=== PATIENT | female | born 1965 | race Caucasian/White ===

== ENCOUNTER → 2021-11-29 10:50 | Outpatient (BNVA) | payer OTHER, SELFPAY | PROVIDERS: Visit Provider Obstetrics & Gynecology | DX: R87.610 Atypical squamous cells of undetermined significance on cytologic smear of cervix (ASC-US) (principal); R87.810 Cervical high risk human papillomavirus (HPV) DNA test positive | CPT/HCPCS: 88305 ==

== ENCOUNTER 2022-02-04 10:24 | Observation (INO) | payer OTHER, SELFPAY ==
[2022-01-31 13:15] VITALS: BMI 25.4
--- NOTE | 2022-01-31 13:32 | ANES.PREANE2 ---
Pre-Anesthetic Assessment Height/Weight: Height 1.63 m Weight 67.132 kg Operation Date: 02/04/22 08:30 Proposed Procedures p Laparoscopic assisted vaginal hysterectomy, bilateral salpingectomy 56788, anterior and posterior repair 59337,N81.4(Not Applicable) - Cynthia Quinn MD s Laparoscopic Salpingectomy(Bilateral) - Cynthia Quinn MD s Anterior Repair(Not Applicable) - Cynthia Quinn MD s Posterior Repair(Not Applicable) - Cynthia Quinn MD Familial anesthetic complications: None Social Tobacco and No alcohol Exam alert, oriented x 3, clear to auscultation bilaterally and regular rate & rhythm Airway Mallampati: Class II Dentition: false Pulmonary None reported CV/HEM None reported None reported Hepatic None reported GI None reported Metabolic None reported Musc/skel None reported Neuropsych None reported Anesthetic Plan ASA status: 1 Anesthesia: General Risk of > 500 ml blood loss (7ml/kg in children): No Medications/Allergies Home Medications Medication Instructions Recorded Confirmed Last Taken Type No Known Home Medications 10/23/21 01/31/22 Unknown History Allergies Allergy/AdvReac Type Severity Reaction Status Date / Time No Known Allergies Allergy Verified 11/29/21 10:14 [facility] Anesthesia Medical History Abnormal Pap smear of cervix Hyperlipemia Family History Mother Diabetes Heart disease Hypertension Father Hypercholesteremia Stroke Other Thyroid disease Denies family history of Colon cancer Ovarian cancer Breast cancer Uterine cancer Social History Smoking and tobacco status: current every day smoker (1ppd) Data Anesthesia Cardiac Studies: No Data to Display
[2022-01-31 16:31] LABS: Basophils % 0.5 %; Eosinophils # 0.1 10^3/uL (0.0-0.8); Eosinophils % 1.1 %; Hematocrit 43.3 % (37.0-47.0); Hemoglobin 14.3 g/dL (11.5-15.3); Lymphocytes # 2.3 10^3/uL (0.8-4.8); Lymphocytes % 29.2 %; Mean Corpuscular Hemoglobin 31.4 pg (28.0-34.0); Mean Platelet Volume 9.3 fL (7.4-10.4); Monocytes # 0.6 10^3/uL (0.2-0.9); Monocytes % 7.5 %; Neutrophils # 4.82 10^3/uL (1.8-7.7); Neutrophils % 61.4 %; Nucleated Red Blood Cells % 0 %; Platelet Count 343 10^3/cmm (130-400); Red Blood Count 4.56 10^6/uL (4.1-5.3); Red Cell Distribution Width 12.3 % (12.1-15.1); White Blood Count 7.9 10^3/uL (4.0-10.0)
[2022-01-31 16:46] LABS: Blood Urea Nitrogen 19 mg/dL (6-20); Calcium 9.6 mg/dL (8.5-10.5); Carbon Dioxide 27 mmol/L (22-29); Chloride 105 mmol/L (98-107); Glomerular Filtration Rate 74.2 mL/min (90-130); Glucose 104 mg/dL (65-115); Osmolality Calculated 295 mOsm/kg (285-295); Sodium 141 mmol/L (136-145)
[2022-02-04] VITALS (16 sets, daily range): BP systolic 111–159; BP diastolic 59–94; PULSE 65–83; RESP 10–18; TEMP 36.1–36.8; O2SAT 95–100
[2022-02-04] MEDS: acetaminophen 1,000 MG/100 ML PIGGYBACK 400 MG IV (07:20)
[2022-02-04] MEDS: gabapentin 300 mg Capsule PO (07:38)
[2022-02-04] MEDS: CELEcoxib 200 mg Capsule 400 MG PO (07:38)
[2022-02-04] MEDS: phenazopyridine 100 mg Tablet 200 MG PO ×2 (07:38→15:14)
[2022-02-04] MEDS: scopolamine 1.5 Patch 1 PATCH TRANSDERMA (07:38)
--- NOTE | 2022-02-04 07:44 | W.PM.OPSUD ---
Surgery/Procedure H&P Update DATE OF PROCEDURE: February 04, 2022 DATE H&P PERFORMED: 01/31/22 H&P UPDATE INFORMATION: I have reviewed H&P completed within last 30 days, I have examined patient prior to procedure and Changes to prior documentation as noted here CHANGES TO PREVIOUS DOCUMENTATION: I have changed the consent to read bilateral salpingoophorectomy instead of bilateral salpingectomy. The patient agrees with plan. PREOP DIAGNOSIS: DARIUSZ 3, uterine prolapse PLANNED PROCEDURE: Operation Date: 02/04/22 08:30 Proposed Procedures p Laparoscopic assisted vaginal hysterectomy, bilateral salpingectomy 14021, anterior and posterior repair 58647,N81.4(Not Applicable) - Cynthia Quinn MD s Laparoscopic Salpingectomy(Bilateral) - Cynthia Quinn MD s Anterior Repair(Not Applicable) - Cynthia Quinn MD s Posterior Repair(Not Applicable) - Cynthia Quinn MD
[2022-02-04] MEDS: ceFAZolin 2,000 MG in sodium chloride 0.9% (plus) 50 ML 100 MG IV ×3 (07:45→23:59)
--- NOTE | 2022-02-04 09:52 | PM.OP ---
Operative Report Date of procedure: February 04, 2022 Pre-op diagnosis: Preop Diagnosis DARIUSZ 3, uterine prolapse Post-op diagnosis: same Post-op findings: 6 week sized uterus, normal appearing tubes and ovaries Procedure done: LAVH, BSO, cystoscopy Specimens removed/disposition: uterus, tubes, ovaries to pathology Surgeon: Cynthia Quinn Anesthesia: General Estimated blood loss (mL): 25 IV fluids (mL): 1,000 Urine output (mL): 50 Complications: none Condition: stable Disposition: PACU Procedure: The patient was taken to the operating room where general anesthesia was administered and found to be adequate. She was prepped and draped in the normal sterile fashion in the dorsal lithotomy position in [facility]. A Iglesias catheter was placed. A weighted speculum was placed into the vagina and the anterior lip of the cervix was grasped with a single tooth tenaculum. The Zumi uterine manipulator was placed. The weighted speculum was removed. The gloves were changed and attention was turned to the abdomen. A 5 mm supraumbilical incision was made. Using a 5 mm port with the camera, the port was placed into the abdomen. The abdomen was insufflated. Two low, lateral 5 mm ports were placed on the left and right under direct visualization from the camera. The right tube was grasped and elevated. Using the laparoscopic cautery, the infundibulopelvic ligament was ligated, then cautery was used inferior to the fallopian tube. This was performed the same way on the left. The uteroovarian ligaments as well as the round ligaments were ligated. The tubes and ovaries were left attached. Attention was then turned to the vaginal portion of the procedure. The weighted speculum was placed into the vagina. The zumi manipulator was removed. The single tooth tenaculum was removed and replaced with the camacho's tenaculum. 10 mL of dilute Pitressin was injected at the vesicovaginal junction. A circumferential incision was made at the vesicovaginal junction and the vaginal mucosa reflected cephalad. The posterior peritoneum was entered sharply with the Metzenbaum scissors and the long weighted speculum replaced. Using the Luz clamps the uterosacral ligaments were clamped cut and suture-ligated. The anterior peritoneum was entered sharply with the metzenbaum scissors. Then sequentially the uterine arteries and cardinal ligaments were clamped cut and suture-ligated. A single-tooth tenaculum was used to deliver the uterus. The remaining segement of the utero-ovarian ligaments were clamped cut and suture-ligated bilaterally and the specimen was removed. There was good hemostasis with only mild bleeding from the cuff. The peritoneum was closed with a pursestring using 2-0 Vicryl. The vaginal cuff was closed with 0 Vicryl in a running locked pattern incorporating the uterosacral ligaments into the lateral aspects of the vaginal cuff. The Iglesias catheter was removed and the cystoscope advanced into the bladder. The patient was given pyridium and bilateral spill was noted. There were no injuries or deficits noted in the bladder. The cystoscope was removed and the Iglesias was replaced. Vaginal packing was placed for good hemostasis. The gloves and gowns were changed and attention was turned to the abdomen. The ports were closed with 2-0 monocryl with skin glue. The patient tolerated the procedure well. Sponge lap and needle counts were correct x3. She was taken to the recovery room in stable condition.
[2022-02-04] MEDS: fentaNYL 50 mcg/mL INJ 2mL IVP (10:26)
[2022-02-04] MEDS: dextrose 5%-lactated ringers 1,000 ML 125 ML IV ×2 (11:11→19:19)
[2022-02-04] MEDS: ketorolac 30 mg/mL INJ IVP ×3 (11:11→22:21)
[2022-02-04] MEDS: HYDROcodone-acetaminophen 5-325 mg Tablet PO (11:49)
--- NOTE | 2022-02-04 13:49 | P.ANESUD_ITS ---
Pre-Anesthetic Update Pre-Anesthetic Assessment: Date of Surgery/Procedure: 02/04/22 Preop Mihaela gnosis: DARIUSZ 3, uterine prolapse Proposed Procedure: Operation Date: 02/04/22 08:30 Proposed Procedures p Laparoscopic assisted vaginal hysterectomy, bilateral salpingectomy 55458, anterior and posterior repair 75281,N81.4(Not Applicable) - Cynthia Quinn MD s Laparoscopic Salpingectomy(Bilateral) - Cynthia Quinn MD s Anterior Repair(Not Applicable) - Cynthia Quinn MD s Posterior Repair(Not Applicable) - Cynthia Quinn MD Any changes to Pre-Anesthetic Assessment?: No Last Intake: Intake Last Liquid Date 02/03/22 Last Liquid Time 17:30 Last Solid Date 02/03/22 Last Solid Time 17:30 Labs Last 48hrs: Blood Bank 02/04/22 07:27 Blood Type O Negative Rho(D) Type Negative Antibody Screen Negative Vitals: Temperature 97.0 F L 02/04/22 09:55 Temperature Source Temporal Artery S can 02/04/22 09:55 Pulse Rate 71 02/04/22 12:46 Respiratory Rate 15 02/04/22 12:46 Respiratory Effort 02/04/22 10:26 Respiratory Depth Normal 02/04/22 10:26 Blood Pressure 155/89 02/04/22 12:46 Blood Pressure Zoe n 111 02/04/22 12:46 Blood Pressure Pos ition Semi Fowlers 02/04/22 12:46 Pulse Oximetry 98 02/04/22 12:46 Oxygen Delivery Me thod 02/04/22 12:46 Oxygen Flow Rate 1 02/04/22 12:46 Exam: Pre-Anes Outpt Exam: alert, oriented x 3, clear to auscultation bilaterally and regular rate & rhythm Cardiac Studies: No Data to Display
--- NOTE | 2022-02-04 16:37 | ANE.PACU2 ---
Inpatient post-anesthesia follow up: Airway intact: Yes Vital signs: Temperature 97.0 F Pulse Rate 71 Respiratory Rate 15 Blood Pressure 155/89 Pulse Oximetry 98 Oxygen Delivery Me thod Nasal Cannula Oxygen Flow Rate 1 Fraction of Inspir ed Oxygen Hydration adequate: Yes Nausea and vomiting: No Pain level: 3 Mental status: Baseline
[2022-02-05] MEDS: ondansetron 2 mg/ML SDV 2 mL 4 MG IVP (00:10)
[2022-02-05] MEDS: HYDROcodone-acetaminophen 5-325 mg Tablet PO (00:45)
[2022-02-05] MEDS: phenazopyridine 100 mg Tablet 200 MG PO ×2 (02:22→09:42)
[2022-02-05] MEDS: ketorolac 30 mg/mL INJ IVP (04:53)
[2022-02-05 06:10] LABS: Hematocrit 35.2 % (37.0-47.0); Hemoglobin 11.2 g/dL (11.5-15.3); Mean Corpuscular HGB Conc 31.8 g/dL (30.0-36.0); Mean Corpuscular Hemoglobin 31.5 pg (28.0-34.0); Mean Corpuscular Volume 98.9 fl (81-99); Mean Platelet Volume 9.8 fL (7.4-10.4); Platelet Count 261 10^3/cmm (130-400); Red Blood Count 3.56 10^6/uL (4.1-5.3); Red Cell Distribution Width 12.6 % (12.1-15.1); White Blood Count 9.4 10^3/uL (4.0-10.0)
--- NOTE | 2022-02-05 07:55 | PC.NURSE ---
This nurse pulled coombs and packing @0500
[2022-02-05] MEDS: docusate sodium 100 mg Capsule PO (09:42)
[2022-02-05] MEDS: ibuprofen 800 mg tablet PO (09:42)
[2022-02-05 10:25] VITALS: BP 130/67; PULSE 55; RESP 17; TEMP 36.6; O2SAT 97
--- NOTE | 2022-02-05 14:33 | P.DS_ITS ---
Discharge Providers Date of Admission: 02/04/22 10:24 Date of Discharge: February 05, 2022 Attending Provider at Admission: Cynthia Quinn MD Attending Provider at Discharge: Cynthia Quinn MD Primary Care Provider: Loretta Parekh Reason for Visit Reason for Visit: Uterovaginal prolapse, unspecified Hospital Course Hospital Course The patient was admitted for surgery. She did well postoperatively and was ready for discharge on day #1 Physical Exam Narrative: On post op day #1, she is doing well. No concerns or complaints.ambulating without difficulty. Tolerating a regular diet. pain is well controlled Const: COMMON NORMALS: no acute distress, average body habitus, patient oriented x3, no limitations, healthy appearing, alert and well nourished GENERAL APPEARANCE: cooperative, comfortable, well kempt and well developed ORIENTATION/CONSCIOUSNESS: Yes awake, Yes oriented to person, Yes oriented to place and Yes oriented to time Resp: COMMON NORMALS: normal respiratory effort EFFORT & INSPECTION: Yes able to speak in complete sentences GI: COMMON NORMALS: Soft to palpation and non-tender PALPATION: Yes Soft to palpation Extremity: COMMON NORMALS: no calf tenderness Neuro: COMMON NORMALS: patient oriented x3 SENSORIUM/ORIENTATION: Yes alert, Yes oriented to person, Yes oriented to place and Yes oriented to time Psych: COMMON NORMALS: mental status grossly normal, Normal thought process present, cooperative, normal affect and speech normal APPEARANCE: Yes well kempt SPEECH: Yes normal speech THOUGHT PROCESS: Normal thought process present Urinary Catheter Management: Iglesias: Cath Placed During This Visit: yes, but has since been removed by the nurse Reason for Continuing Indwelling Catheter: Decision to DC Catheter Urinary Catheter Date of Insertion: 02/04/22 Urinary Catheter Time of Insertion: 08:12 Date Urinary Catheter Removed: 02/05/22 Time Urinary Catheter Discontinued: 05:00 Discharge Data Studies Completed and Pending Pending at discharge Category Date Time Status Pathology: Surgical [PTH] Routine Pth 02/04/22 10:23 Received Laboratory Results WBC 9.4 10^3/uL (4.0-10.0) 02/05/22 05:09 RBC 3.56 10^6/uL (4.1-5.3) L 02/05/22 05:09 Hgb 11.2 g/dL (11.5-15.3) L 02/05/22 05:09 Hct 35.2 % (37.0-47.0) L 02/05/22 05:09 MCV 98.9 fl (81-99) 02/05/22 05:09 MCH 31.5 pg (28.0-34.0) 02/05/22 05:09 MCHC 31.8 g/dL (30.0-36.0) 02/05/22 05:09 RDW 12.6 % (12.1-15.1) 02/05/22 05:09 Plt Count 261 10^3/cmm (130-400) 02/05/22 05:09 MPV 9.8 fL (7.4-10.4) 02/05/22 05:09 Neut % (Auto) 61.4 % 01/31/22 16:10 Lymph % (Auto) 29.2 % 01/31/22 16:10 Mcduffie % (Auto) 7.5 % 01/31/22 16:10 Eos % (Auto) 1.1 % 01/31/22 16:10 Baso % (Auto) 0.5 % 01/31/22 16:10 Neut # (Auto) 4.82 10^3/uL (1.8-7.7) 01/31/22 16:10 Lymph # (Auto) 2.3 10^3/uL (0.8-4.8) 01/31/22 16:10 Mcduffie # (Auto) 0.6 10^3/uL (0.2-0.9) 01/31/22 16:10 Eos # (Auto) 0.1 10^3/uL (0.0-0.8) 01/31/22 16:10 Baso # (Auto) 0.0 10^3/uL (0.0-0.1) 01/31/22 16:10 Nucleated RBC % (auto) 0 % 01/31/22 16:10 Nucleated RBCs # 0.0 /100WBC 01/31/22 16:10 Sodium 141 mmol/L (136-145) 01/31/22 16:10 Potassium 4.0 mmol/L (3.5-5.1) 01/31/22 16:10 Chloride 105 mmol/L (98-107) 01/31/22 16:10 Carbon Dioxide 27 mmol/L (22-29) 01/31/22 16:10 Anion Gap 13.0 (5-19) 01/31/22 16:10 BUN 19 mg/dL (6-20) 01/31/22 16:10 Creatinine 0.8 mg/dL (0.5-0.9) 01/31/22 16:10 GFR Calculation 74.2 mL/min (90-130) L 01/31/22 16:10 Glucose 104 mg/dL (65-115) 01/31/22 16:10 Calculated Osmolality 295 mOsm/kg (285-295) 01/31/22 16:10 Calcium 9.6 mg/dL (8.5-10.5) 01/31/22 16:10 Blood Type O Negative 02/04/22 07:27 Rho(D) Type Negative 02/04/22 07:27 Antibody Screen Negative 02/04/22 07:27 Vitals Last Vital Signs Temp 97.8 F 02/05/22 10:25 Pulse 55 L 02/05/22 10:25 Resp 17 02/05/22 10:25 BP 130/67 02/05/22 10:25 Pulse Ox 97 02/05/22 10:25 O2 Del Method 02/04/22 20:00 O2 Flow Rate 1 02/04/22 12:46 Discharge Plan Discharge Patient Disposition: Home Condition: Stable Prescriptions: New ibuprofen 800 mg Tablet 800 mg PO Q8H Qty: 30 0RF hydrocodone-acetaminophen 5-325 mg Tablet 1 tab PO Q4H PRN (Reason: Moderate To Severe Pain) Qty: 30 0RF docusate sodium 100 mg Capsule 100 mg PO BID Qty: 60 0RF Discharge Orders: Discharge Order (Routine); Ordered 02/05/22 Ordered By: Cynthia Quinn Referrals: Cynthia Quinn MD [Physician] - 02/10/22 10:30 am ( Your 1 week follow up with Dr Quinn is on ThursdayFeb 10 at 10:30am Your 6 week follow up with Dr Quinn in on ThursdayMar 17 at 12:45pm ) Patient Instructions: Opioid Safety (GEN), Laparoscopic Hysterectomy (GEN), OB Discharge Report, OB Food/Drug Interaction Guide, Opioid Safety Discharge Attestations Time Spent in Discharge Care*: less than 30 min Quality Metrics Clinical Quality Measures [ No reported AMI, CVA or VTE this stay] Coding Level of Care Code Acute Chg FW DC note
== END 2022-02-05 10:30 | disposition home or self-care (01) ==
LOC: OBGYN 10:24
PROVIDERS: Admitting Provider Obstetrics & Gynecology; PCP Nurse Practitioner Family; Visit Provider Obstetrics & Gynecology
PROC: 0UT94ZZ Resection of Uterus, Percutaneous Endoscopic Approach (ICD-10-PCS; CPT 58552; principal; 2022-02-04 08:30)
PROC: (CPT 58661; 2022-02-04 08:30)
DX: N81.4 Uterovaginal prolapse, unspecified (principal); D06.9 Carcinoma in situ of cervix, unspecified; F17.210 Nicotine dependence, cigarettes, uncomplicated
CPT/HCPCS: 58552; 36415; 80048; 85025; 85027; 86850; 86900; 87086; 88305; 96374; 96376; G0378; J0131; J0690; J1100; J1170; J1200; J1885; J2405; J2704; J2710; J3010; J3490; J7121

== ENCOUNTER → 2023-10-10 15:02 | Outpatient (BNVA) | payer SELFPAY | PROVIDERS: PCP Nurse Practitioner Family; Visit Provider Emergency Medicine | DX: M25.511 Pain in right shoulder (principal); M75.31 Calcific tendinitis of right shoulder | CPT/HCPCS: 73030 ==